=== PATIENT | female | born 1990 | race Caucasian/White ===

== ENCOUNTER → 2020-09-23 | Day surgery (SDC) | payer OTHER ==
[~2020-09-23] VITALS: Ht 167.6 cm; Wt 114.8 kg
[~2020-09-23] MED LIST: AMITRIPTYLINE H75 MG PO; CELEXA40 MG PO; DAILY VALUE1 EACH PO; NEXIUM20 MG PO; PROBIOTIC1 EACH PO; TOPAMAX100 MG PO; WAL-ZYR10 MG PO
== END | disposition home or self-care (01) ==
LOC: OR 07:45
DX: B35.1 Tinea unguium (principal); L60.3 Nail dystrophy; K58.9 Irritable bowel syndrome, unspecified; E78.5 Hyperlipidemia, unspecified; G43.909 Migraine, unspecified, not intractable, without status migrainosus; F32.9 Major depressive disorder, single episode, unspecified; F41.9 Anxiety disorder, unspecified; Z88.6 Allergy status to analgesic agent; Z79.899 Other long term (current) drug therapy
CPT/HCPCS: 84703; J0690; J1100; J2001; J2250; J2405; J2704; J2795; J3010; J3370; J7120

== ENCOUNTER → 2021-04-20 | Outpatient (CLI) | payer OTHER ==
[~2021-04-20] MED LIST changes: +OMNICEF 300 MG300 MG PO; +ZOFRAN4 MG PO
== END ==
LOC: KOH-I 15:02
DX: M25.572 Pain in left ankle and joints of left foot (principal); M79.672 Pain in left foot
CPT/HCPCS: 73610; 73630

== ENCOUNTER 2021-04-23 17:38 | Emergency (ER) | payer OTHER ==
[~2021-04-23 17:38] MED LIST changes: -OMNICEF 300 MG300 MG PO; -ZOFRAN4 MG PO
[2021-04-23 20:04] LABS: HEMOGLOBIN 13.6 gm/dl (12.3-15.3); RED BLOOD COUNT 4.78 M/UL (4.00-5.10); WHITE BLOOD COUNT 20.5 K/UL (4.5-11.0)
[2021-04-23 20:32] LABS: BUN/CREATININE RATIO 27 (0-10)
[2021-04-23] MEDS ORDERED: OMNICEF 300 MG300 MG PO (22:28)
[2021-04-23] MEDS ORDERED: ZOFRAN4 MG PO (22:28)
== END 2021-04-23 23:04 | disposition home or self-care (01) ==
LOC: ER1 17:38
PROVIDERS: Physician Assistant
DX: N39.0 Urinary tract infection, site not specified (principal); Z90.89 Acquired absence of other organs; Z79.84 Long term (current) use of oral hypoglycemic drugs
CPT/HCPCS: 80053; 81001; 84703; 85025; 87086; 96374; 96375; 99284; J0696; J2270; J2405; J7030

== ENCOUNTER → 2021-05-08 | Outpatient (CLI) | payer OTHER ==
[~2021-05-08] MED LIST changes: +OMNICEF 300 MG300 MG PO; +ZOFRAN4 MG PO
== END ==
LOC: KOH-I 10:23
DX: M79.672 Pain in left foot (principal)
CPT/HCPCS: 73718